=== PATIENT | female | born 1960 | race Caucasian/White ===

== ENCOUNTER 2018-10-16 21:41 | Emergency (ER) | payer MEDICAID ==
[~2018-10-16] VITALS: Ht 142.2 cm; Wt 61.7 kg
[2018-10-16 22:41] VITALS: BP 134/82
== END 2018-10-17 02:45 | disposition left against medical advice (07) ==
LOC: ER 21:41
DX: Z53.21 Procedure and treatment not carried out due to patient leaving prior to being seen by health care provider (principal); I10 Essential (primary) hypertension